=== PATIENT | male | born 1970 | race Hispanic/Latino ===

== ENCOUNTER 2018-10-10 16:59 | Emergency (ER) | payer BC ==
[2018-10-10] MEDS ORDERED: FLUORESCEIN SODIUM 1 MG/WRAP ONE (17:30)
[2018-10-10] MEDS ORDERED: TETRACAINE HCL 0.5% 4ML OPTH ONE (17:30)
[2018-10-10] MEDS ORDERED: TETANUS & DIPHTHERIA TOX,ADULT 0.5 ML VIAL ONE (17:39)
[2018-10-10] MEDS ORDERED: CODEINE 30MG/APAP 300MG TAB ONE (17:56)
[2018-10-10] MEDS ORDERED: TOBRAMYCIN SULF 0.3% OPTH OINT ONE (17:56)
--- NOTE | 2018-10-10 18:37 | EDPHYS ---
Physician Documentation [facility] Name: Javier Lujan Age: 48 yrs Sex: Male : 1970 Arrival Date: 10/10/2018 Time: 17:03 Bed 7 Private MD: ED Physician Jong Bonilla HPI: 10/10 17:26 This 48 yrs old Male presents to ER via Ambulatory with complaints of Redness pm1 of Eye. 17:26 The patient is experiencing pain, redness, to both eyes, caused by an unknown pm1 mechanism. Onset: The symptoms/episode began/occurred today. Duration: the symptoms are continuous. Aggravated by rubbing, Alleviated by nothing. Associated signs and symptoms: Pertinent negatives: fever. Patient does not utilize any form of vision correction. Severity of symptoms: in the emergency department the symptoms are unchanged. The patient has not experienced similar symptoms in the past. The patient has not recently seen a physician. Patient got home from work and felt that he might have something in his eyes. Started rubbing them and the redness and pain to his eyes got worse. Historical: - Allergies: 17:09 No Known Allergies; la1 - PMHx: 17:09 None; la1 - Immunization history:: Adult Immunizations up to date. - Social history:: Smoking status: Patient/guardian denies using tobacco. - Ebola Screening: : No symptoms or risks identified at this time. ROS: 17:26 Constitutional: Negative for fever, chills, and weight loss. pm1 17:26 ENT: Negative for injury, pain, and discharge, Neck: Negative for injury, pain, and swelling, Cardiovascular: Negative for chest pain, palpitations, and edema, Respiratory: Negative for shortness of breath, cough, wheezing, and pleuritic chest pain, Abdomen/GI: Negative for abdominal pain, nausea, vomiting, diarrhea, and constipation, Back: Negative for injury and pain, MS/Extremity: Negative for injury and deformity, Skin: Negative for injury, rash, and discoloration, Neuro: Negative for headache, weakness, numbness, tingling, and seizure. 17:26 Eyes: Positive for foreign body sensation, pain, redness, tearing, Negative for vision loss. Exam: 17:29 Visual Acuity: I have reviewed the nursing documentation. pm1 17:29 Constitutional: This is a well developed, well nourished patient who is awake, alert, and in no acute distress. Head/Face: Normocephalic, atraumatic. 17:29 ENT: Nares patent. No nasal discharge, no septal abnormalities noted. Tympanic membranes are normal and external auditory canals are clear. Oropharynx with no redness, swelling, or masses, exudates, or evidence of obstruction, uvula midline. Mucous membranes moist. Neck: Trachea midline, no thyromegaly or masses palpated, and no cervical lymphadenopathy. Supple, full range of motion without nuchal rigidity, or vertebral point tenderness. No Meningismus. Chest/axilla: Normal chest wall appearance and motion. Nontender with no deformity. No lesions are appreciated. Cardiovascular: Regular rate and rhythm with a normal S1 and S2. No gallops, murmurs, or rubs. Normal PMI, no JVD. No pulse deficits. Respiratory: Lungs have equal breath sounds bilaterally, clear to auscultation and percussion. No rales, rhonchi or wheezes noted. No increased work of breathing, no retractions or nasal flaring. Back: No spinal tenderness. No costovertebral tenderness. Full range of motion. Skin: Warm, dry with normal turgor. Normal color with no rashes, no lesions, and no evidence of cellulitis. MS/ Extremity: Pulses equal, no cyanosis. Neurovascular intact. Full, normal range of motion. 17:29 Eyes: Periorbital structures: appear normal, Pupils: no acute changes, Extraocular movements: no acute changes, Conjunctiva: injected, bilaterally, Corneas: abrasion, that is small, on the right, at 3 o'clock, foreign body, is not appreciated, a fluorescein strip employed to appreciate the findings, Sclera: no appreciated abnormality, Lids and lashes: edema, of the right eye. 17:29 Neuro: Orientation: is normal, Motor: is normal, moves all fours. Vital Signs: 17:09 BP 221 / 114; Pulse 82; Resp 16; Temp 97.1; Pulse Ox 98% on R/A; Weight 81.65 kg; la1 Height 5 ft. 5 in. (165.10 cm); 18:04 BP 188 / 103; Pulse 57; Resp 18; Pulse Ox 100% on R/A; aj1 18:29 BP 196 / 106; Pulse 62; Resp 18; Pulse Ox 97% on R/A; aj1 19:00 BP 188 / 106; Pulse 60; Resp 18; Temp 97.6; Pulse Ox 100% ; ea 17:09 Body Mass Index 29.95 (81.65 kg, 165.10 cm) la1 Visual Acuity: 17:11 Left Eye Visual acuity 20/50, Pupil size 4 mm, ; Right Eye Visual acuity 20/50, Pupil la1 size 4 mm, ; Both Eyes Visual acuity 20/50; Without Lenses; MDM: 17:14 Patient medically screened. pm1 18:36 Data reviewed: vital signs. Data interpreted: Pulse oximetry: on room air is 97 %. pm1 Interpretation: normal. Counseling: I had a detailed discussion with the patient and/or guardian regarding: the historical points, exam findings, and any diagnostic results supporting the discharge/admit diagnosis, the need for outpatient follow up, for definitive care, an opthalmologist, to return to the emergency department if symptoms worsen or persist or if there are any questions or concerns that arise at home. Special discussion: I have referred the patient to see his PCP for further evaluation of high blood pressure. 10/10 17:16 Order name: Visual Acuity; Complete Time: 17:17 pm1 10/10 17:16 Order name: Eye Tray; Complete Time: 17:17 pm1 10/10 17:16 Order name: Fluoresene Opth strip; Complete Time: 17:17 pm1 Administered Medications: 17:17 Drug: Tetracaine Drops 0.5 % 1 drops Route: Ophthalmic; Site: both eyes; 17:29 Drug: Tetanus-Diphtheria Toxoid Adult 0.5 ml {[employer]rus [employer]: [employer]. Exp: hb 06/12/2020. Lot #: [id number]. } Route: IM; Site: left deltoid; 19:00 Follow up: Response: No adverse reaction ea 17:51 Drug: Tobramycin Drops (0.3 %) 2 drops Route: Ophthalmic; Site: right eye; aj 17:51 Drug: Tobramycin Drops (0.3 %) 2 drops Route: Ophthalmic; Site: left eye; aj1 17:52 Drug: Tylenol #3 (300 mg-30 mg) 1 tablet Route: PO; aj 19:00 Follow up: Response: No adverse reaction; Pain is decreased ea Disposition: 10/10/18 18:38 Discharged to Home. Impression: Injury of conjunctiva and corneal abrasion without foreign body, left eye, Essential (primary) hypertension. - Condition is Stable. - Discharge Instructions: Corneal Abrasion, Hypertension, How to Take Your Blood Pressure, [id number], DASH Eating Plan, Managing Your Hypertension. - Prescriptions for Tylenol- Codeine #3 300-30 mg Oral Tablet - take 2 tablets by ORAL route every 6 hours As needed; 20 tablet. Erythromycin 5 mg/gram (0.5 %) Ophthalmic Ointment - apply 1 centimeter by OPHTHALMIC route every 8 hours for 7 days To both eyes; 1 tube. Hydrochlorothiazide 12.5 mg Oral Tablet - take 1 tablet by ORAL route once daily; 30 tablet. - Medication Reconciliation Form, Thank You Letter, Antibiotic Education, Prescription Opioid Use form. - Follow up: Emergency Department; When: As needed; Reason: Worsening of condition. Follow up: Private Physician; When: 2 - 3 days; Reason: Recheck today's complaints, Continuance of care, Re-evaluation by your physician. - Problem is new. - Symptoms have improved. Signatures: Arlette Verdin RN RN aj1 Obi Gay RN RN la1 Alfred Solorzano NP LAST CODE STRIPER pm1 Lisa Nguyen RN RN Kyleigh Adame RN RN ea Corrections: (The following items were deleted from the chart) 19:09 18:38 10/10/2018 18:38 Discharged to Home. Impression: Injury of conjunctiva and ea corneal abrasion without foreign body, left eye; Essential (primary) hypertension. Condition is Stable. Forms are Medication Reconciliation Form, Thank You Letter, Antibiotic Education, Prescription Opioid Use. Follow up: Emergency Department; When: As needed; Reason: Worsening of condition. Follow up: Private Physician; When: 2 - 3 days; Reason: Recheck today's complaints, Continuance of care, Re-evaluation by your physician. Problem is new. Symptoms have improved. pm1
--- NOTE | 2018-10-10 18:37 | ER ---
Nurse's Notes [facility] Name: Javier Lujan Age: 48 yrs Sex: Male : 1970 Arrival Date: 10/10/2018 Time: 17:03 Bed 7 Private MD: Diagnosis: Injury of conjunctiva and corneal abrasion without foreign body, left eye;Essential (primary) hypertension Presentation: 10/10 17:08 Presenting complaint: Patient states: When I finished working I Think I rubbed my eye la1 or something and now both of my eyes are really red and hurt a little, pt denies visual loss. MAYRA sclera red. Transition of care: patient was not received from another setting of care. Onset of symptoms was October 10, 2018. Risk Assessment: Do you want to hurt yourself or someone else? Patient reports no desire to harm self or others. Initial Sepsis Screen: Does the patient meet any 2 criteria? No. Patient's initial sepsis screen is negative. Does the patient have a suspected source of infection? No. Patient's initial sepsis screen is negative. Care prior to arrival: None. 17:08 Method Of Arrival: Ambulatory la1 17:08 Acuity: GIUSEPPE 2 la1 Historical: - Allergies: 17:09 No Known Allergies; la1 - PMHx: 17:09 None; la1 - Immunization history:: Adult Immunizations up to date. - Social history:: Smoking status: Patient/guardian denies using tobacco. - Ebola Screening: : No symptoms or risks identified at this time. Screenin:30 Abuse screen: Denies threats or abuse. Denies injuries from another. Nutritional aj1 screening: No deficits noted. Tuberculosis screening: No symptoms or risk factors identified. Assessment: 17:30 General: Appears in no apparent distress. uncomfortable, Behavior is calm, cooperative, aj1 appropriate for age. Pain: Complains of pain in right eye and left eye. Neuro: Level of Consciousness is awake, alert, obeys commands, Oriented to person, place, time, situation. Cardiovascular: Patient's skin is warm and dry. Respiratory: Airway is patent Respiratory effort is even, unlabored, Respiratory pattern is regular, symmetrical. GI: No signs and/or symptoms were reported involving the gastrointestinal system. : No signs and/or symptoms were reported regarding the genitourinary system. EENT: Eyes are tearing on right lower eyelid and left lower eyelid Sclera/Cornea are reddened in outer aspect of conjuctiva of right eye, iris of right eye, inner aspect of conjuctiva of right eye, outer aspect of conjuctiva of left eye, iris of left eye and inner aspect of conjunctiva of left eye. Derm: No signs and/or symptoms reported regarding the dermatologic system. Skin is pink, warm \T\ dry. normal. Musculoskeletal: No signs and/or symptoms reported regarding the musculoskeletal system. Circulation, motion, and sensation intact. 18:29 Reassessment: Patient appears in no apparent distress at this time. No changes from aj1 previously documented assessment. Patient and/or family updated on plan of care and expected duration. Pain level reassessed. Patient is alert, oriented x 3, equal unlabored respirations, skin warm/dry/pink. 19:05 Reassessment: Patient and/or family updated on plan of care and expected duration. Pain ea level reassessed. Patient is alert, oriented x 3, equal unlabored respirations, skin warm/dry/pink. Discharge instruction given to patient, verbalized the understanding of instruction. Pt verbalized the understanding of instruction, pt left ED ambulatory without assistance, pt tolerating well. Vital Signs: 17:09 BP 221 / 114; Pulse 82; Resp 16; Temp 97.1; Pulse Ox 98% on R/A; Weight 81.65 kg; la1 Height 5 ft. 5 in. (165.10 cm); 18:04 BP 188 / 103; Pulse 57; Resp 18; Pulse Ox 100% on R/A; aj1 18:29 BP 196 / 106; Pulse 62; Resp 18; Pulse Ox 97% on R/A; aj1 19:00 BP 188 / 106; Pulse 60; Resp 18; Temp 97.6; Pulse Ox 100% ; ea 17:09 Body Mass Index 29.95 (81.65 kg, 165.10 cm) la1 Visual Acuity: 17:11 Left Eye Visual acuity 20/50, Pupil size 4 mm, ; Right Eye Visual acuity 20/50, Pupil la1 size 4 mm, ; Both Eyes Visual acuity 20/50; Without Lenses; ED Course: 17:03 Patient arrived in ED. mr 17:09 Triage completed. la1 17:09 Arm band placed on right wrist. la1 17:14 Alfred Solorzano NP is PHCP. pm1 17:14 Jong Bonilla MD is Attending Physician. pm1 17:23 Arlette Verdin RN is Primary Nurse. aj1 17:30 Patient has correct armband on for positive identification. Bed in low position. Call [facility] light in reach. Side rails up X 1. 17:30 No provider procedures requiring assistance completed. aj1 17:43 Eye irrigation normal saline, 40mL to each eye, pt tolerated well. 3 19:09 Patient did not have IV access during this emergency room visit. ea Administered Medications: 17:17 Drug: Tetracaine Drops 0.5 % 1 drops Route: Ophthalmic; Site: both eyes; 17:29 Drug: Tetanus-Diphtheria Toxoid Adult 0.5 ml {[employer]: [employer]. Exp: hb 06/12/2020. Lot #: [id number]. } Route: IM; Site: left deltoid; 19:00 Follow up: Response: No adverse reaction ea 17:51 Drug: Tobramycin Drops (0.3 %) 2 drops Route: Ophthalmic; Site: right eye; [facility] 17:51 Drug: Tobramycin Drops (0.3 %) 2 drops Route: Ophthalmic; Site: left eye; [facility] 17:52 Drug: Tylenol #3 (300 mg-30 mg) 1 tablet Route: PO; [facility] 19:00 Follow up: Response: No adverse reaction; Pain is decreased ea Outcome: 18:38 Discharge ordered by MD. pm1 19:09 Discharged to home ambulatory. ea 19:09 Condition: stable 19:09 Discharge instructions given to patient, Instructed on discharge instructions, follow up and referral plans. medication usage, Demonstrated understanding of instructions, follow-up care, medications, Prescriptions given X 4. 19:09 Patient left the ED. ea Signatures: Arlette Verdin, KAMERON MELO [facility] Ailin Rodriguez Obi Desouza RN RN ncAlfred Jackson NP EMISSION TECHNICIAN pm1 Lisa Nguyen RN RN Val Sandy [facility] Kyleigh Adame RN RN ea
== END 2018-10-10 19:09 | disposition home or self-care (01) ==
LOC: ER 16:59
DX: S05.02XA Injury of conjunctiva and corneal abrasion without foreign body, left eye, initial encounter (principal); I10 Essential (primary) hypertension
CPT/HCPCS: 90471; 90714; 99283